=== PATIENT | female | born 1945 | race Caucasian/White ===

== ENCOUNTER 2020-01-18 19:35 | Emergency (ER) | payer BC ==
[~2020-01-18] VITALS: Ht 157.5 cm; Wt 72.9 kg
[2020-01-18] MEDS ORDERED: ATOR1TAB21 PO (19:53)
[2020-01-18] MEDS ORDERED: LEVO50TA5 PO (19:53)
[2020-01-18] MEDS ORDERED: PROZ20CA11 PO (19:53)
[2020-01-18 20:29] VITALS: BP 140/76
[2020-01-18] MEDS ORDERED: KETOROLAC 60MG 2ML VIAL IM ONE (20:45)
== END 2020-01-18 21:22 | disposition home or self-care (01) ==
LOC: M ED 19:35
DX: M65.332 Trigger finger, left middle finger (principal); E78.5 Hyperlipidemia, unspecified; E03.9 Hypothyroidism, unspecified
CPT/HCPCS: 99283; J1885